=== PATIENT | female | born 1960 | race Caucasian/White ===

== ENCOUNTER 2023-12-23 10:39 | Day surgery (SDC) | payer OTHER ==
[2023-12-22 10:19] VITALS: BMI 21.1
[~2023-12-23 10:39] MED LIST: ALPRAZolam 0.25 MG TAB PO PRN; ALPRAZolam 0.5 MG TAB PO PRN; ASPIRIN 325 MG TAB PO ONE; ATORVASTATIN 80 MG TAB PO ONE; NITROGLYCERIN SL TABS 0.4 MG TAB SUBLINGUAL PRN
[2023-12-23 11:01] VITALS: RESP 18; TEMP 98
[2023-12-23] MEDS: SODIUM CHLORIDE 0.9% 1,000 ML in EMPTY BAG 1 BAG IV SCH (11:01)
[2023-12-23] MEDS: IV FLUID CONTINUATION 1,000 ML IV ONE (11:02)
[2023-12-23] MEDS: LIDOCAINE 1% INJ 10MG/ML (20 ML MDV) SQ ONE (11:54)
[2023-12-23] MEDS: MIDAZOLAM 2 MG/2 ML VIAL IVP ONE (11:55)
[2023-12-23] MEDS: fentaNYL (PF) 50 MCG/1 ML VIAL IVP ONE (11:55)
[2023-12-23] MEDS: HEPARIN SODIUM,PORCINE (1 ML) 2,500 UNIT in SODIUM CHLORIDE 0.9% 250 ML IRRIGATION PRN (12:00)
[2023-12-23] MEDS: HEPARIN SODIUM,PORCINE 10,000 UNIT in SODIUM CHLORIDE 0.9% 1,000 ML IRRIGATION PRN (12:00)
[2023-12-23] MEDS: IOPAMIDOL-370 100ML BTL INJ ONE (12:21)
[2023-12-23] MEDS ORDERED: RX INFO: IV CONTRAST WAS GIVEN 1 EACH MISC MISCELLANE PRN (12:31)
--- NOTE | 2023-12-23 12:31 | P.CARDCATH ---
Date of Procedure: 12/23/23 Description of Procedure: DIAGNOSTIC CORONARY ANGIOGRAPHY and LEFT HEART CATH REPORT PROCEDURES PERFORMED: Left heart catheterization Selective coronary angiography Moderate conscious sedation 22 mins Attempted ultrasound assisted right radial access but not performed due to small nature of radial artery. Right common femoral access Right common femoral arteriogram Angioseal Closure INDICATION: Abnormal stress test Substernal chest pressure, typical description HPI Patient had substernal chest pressure with exertion and emotional stress. For this she went to [facility] where she had an treadmill echo stress test which showed stress-induced inferolateral wall motion abnormality. For this she was referred to [facility]. In [facility] she was rule out of acute coronary syndrome and was asked to follow-up with cardiology on outpatient basis for an abnormal stress test. She was scheduled for an outpatient heart catheterization procedure for this abnormal stress test results. Report that previously she has had a heart cath CONSENT: I have discussed the risks, benefits and alternative therapies for the above-mentioned procedure, sedation/analgesia and necessary blood product administration (if indicated, as they pertain to this patient). The patient has indicated understanding and acceptance of the risks and procedures discussed. Conscious Sedation: Patient's ECG, heart rate, blood pressure, pulse oximetry was monitored throughout the duration of procedure under the direct supervision. 2 mg Versed and 50 mg Fentanyl were used for induction of moderate conscious sedation. Total duration of [25] minutes. PROCEDURE:After the risks, benefits and alternatives of the above mentioned procedure explained in detail with the patient, informed consent was obtained. Patient was taken to the catheterization lab and prepped and draped in usual sterile fashion. Ultrasound was used to identify the right common femoral artery. 1% lidocaine was infiltrated over the right common femoral artery. Using ultrasound arterial access was obtained using micropuncture needle. A 6-[place] sheath was placed in the right coomon femoral artery using modified Seldinger technique. J tipped wire was advanced under fluoroscopic guidance. Over the wire JL4 diagnostic catheter was advanced. Wire was removed, catheter was flushed and manipulated under fluoroscopy to selectively engaged the left coronary ostium. Left coronary angioplasty was performed in different angiographic projections. This catheter was exchanged for a JR4 diagnostic catheter over the wire. The catheter was flushed and manipulated to cross the aortic valve. LV pressures were obtained. Pullback was performed across aortic valve and catheter was manipulated to selectively engage the right coronary ostium under fluoroscopic guidance. Right coronary angiography was performed in different angiographic projections. Catheter was removed over the wire. Femoral sheath was flushed. Angioseal closure device was used to close the arteriotomy site. Appropriate patent hemostatis was achieved. The patient tolerated the procedure well. Patient was transported back to the post catheterization holding area in stable condition. Angiographic images were reviewed in detail. HEMODYNAMICS: Aortic Pressure: 110/70 mmHg. LV pressure: 112/5 mmHg. LVEDP 14 mmHg. SELECTIVE CORONARY ARTERIOGRAPHY: LEFT MAIN: The left main is a large caliber vessel which bifurcates into the LAD and circumflex. Left main appears angiographically normal. LEFT ANTERIOR DESCENDING CORONARY ARTERY: LAD is a large caliber vessel which wraps around to the apex. It appears angiographically normal. It gives diagonal branch which appears angiographically normal. LEFT CIRCUMFLEX CORONARY ARTERY: It is non-dominant vessel. Left circumflex is a moderate caliber vessel. It appears angiographically normal. It gives moderate size OM branch which appears angiographically normal. RIGHT CORONARY ARTERY: Dominant vessel. The right coronary artery is a large caliber vessel which gives PDA and PLV branch. It appears angiographically normal. All coronary arteries are very tortuous. IMPRESSION: Angiographically normal coronary arteries as described above. Normal left sided filling pressures Overall tortuous coronary arteries. Falsely positive treadmill echo stress test PLAN: Aggressive risk factor modification per most recent ACC/AHA guidelines. 125 cc fluids for 4 hours Discharge home in 6 hours Follow-up in the office in 1-2 weeks. Performing Physician Kranthi Gauthier MD [facility], [facility] Thank you for allowing [facility] to participate in this patient's care. Feel free to reach out in case of any followup questions.
[2023-12-23] MEDS ORDERED: SODIUM CHLORIDE 0.9% 1,000 ML IV SCH (12:45)
[2023-12-23 15:57] VITALS: BP 102/58; PULSE 64
== END 2023-12-23 15:59 | disposition home or self-care (01) ==
LOC: CATHCVL 10:39
PROVIDERS: ATTEND Student in an Organized Health Care Education/Training Program
DX: R94.39 Abnormal result of other cardiovascular function study (principal); R07.89 Other chest pain; E78.5 Hyperlipidemia, unspecified; F12.90 Cannabis use, unspecified, uncomplicated; Z79.899 Other long term (current) drug therapy
CPT/HCPCS: 93458; 99152 ×2; C1760; C1769 ×2; C1894 ×2; J2250; J1644 ×2; J2003; Q9967; J3010